=== PATIENT | male | born 1975 | race Caucasian/White ===

== ENCOUNTER 2022-12-17 06:29 | Emergency (ER) | payer BC ==
[~2022-12-17] VITALS: Ht 180.3 cm; Wt 73.0 kg
[2022-12-17 06:55] VITALS: BP 133/106; PULSE 86; RESP 18; TEMP 98.3; O2SAT 98
[2022-12-17] MEDS ORDERED: IBUPROFEN 400MG TABLET PO ONE (09:30)
== END 2022-12-17 09:55 | disposition home or self-care (01) ==
LOC: ER 06:29
DX: H92.01 Otalgia, right ear (principal); R44.2 Other hallucinations; J45.909 Unspecified asthma, uncomplicated
CPT/HCPCS: 99281